=== PATIENT | male | born 1990 | race Caucasian/White ===

== ENCOUNTER 2017-02-22 13:32 | Emergency (ER) | payer SELFPAY ==
--- NOTE | 2017-02-22 14:04 | RADIOLOGY REPORT ---
Right knee HISTORY: 26-year-old male injured knee on slip and slide. Complains of pain both medially and lateral ly. Discussion: 3 radiographs of the right knee are reviewed. There are no prior studies available for co mparison. Bony structures appear normally aligned. There is no fracture or dislocation seen. No degenerative ch anges are present. Is no joint effusion. Soft tissues appear unremarkable. IMPRESSION: No acute bony injury identified. Final Electronic Signature: This report was electronically signed by Les Hughes MD on 02/22/2017 2:02 PM. patricio /
--- NOTE | 2017-02-22 14:06 | ER PHYSICIAN DOCUMENTATION ---
Physician Documentation [facility] Name:Diogenes Abarca Age:26 yrs Sex:Male :1990 Arrival Date:02/22/2017 Time:13:32 Bed6 Private MD: Dwight Colon Disposition: 02/22/17 13:53 Discharged to Home/Self Care. Impression: Internal Derangement of Knee. - Condition is Good. - Discharge Instructions: KNEE INJURY Cruciate Ligament - CRUCIATE LIGAMENT INJURY, KNEE IMMOBILIZER. - Prescriptions for Hydrocodone- Acetaminophen 5-325 mg Oral Tablet - take 1 tablet by ORAL route every 6 hours As needed; 20 tablet. - Medical Reconciliation form form. - Follow up: Polo Brandt DO; When: 1 week; Reason: Recheck today's complaints. - Problem is new. - Symptoms are unchanged. HPI: 02/22 13:44 This 26 yrs old Male presents to ER with complaints of Knee Injury - RIGHT. sc 13:44 The patient presents with an injury, pain. The complaints affect the right knee. sc Context: The problem was sustained at home, resulted from playing sports, twisting of the extremity, the patient can partially bear weight, the patient is able to ambulate, with moderate difficulty. Onset: The symptom(s)/episode began/occurred 3 day(s) ago. Associated signs and symptoms: The patient has no apparent associated signs or symptoms. Historical: - Allergies: No known drug Allergies; - Home Meds: 1. None - PMHx: None; - PSHx: None; - Ebola Screening: : Patient negative for fever greater than or equal to 101.5 degrees Fahrenheit, and additional compatible Ebola Virus Disease symptoms. Patient denies exposure to infectious person. Patient denies travel to an Ebola-affected area in the 21 days before illness onset. No symptoms or risks identified at this time. . - Immunization history: Flu Vaccine >1 year. - Social history: Smoking status: Patient states former smoker of tobacco. Patient uses alcohol only on a social basis. Patient/guardian denies using street drugs, IV drugs, marijuana. ROS: 13:45 Constitutional: Negative for fever, chills, and weight loss. sc Eyes: Negative for injury, pain, redness, and discharge. Neck: Negative for injury, pain, and swelling. Back: Negative for injury and pain. Skin: Negative for injury, rash, and discoloration. 13:45 Neuro: Negative for headache, weakness, numbness, tingling, and seizure. sc 13:45 MS/extremity: Positive for injury or acute deformity, pain, swelling. Exam: Constitutional: This is a well developed, well nourished patient who is awake, alert, and in no acute distress. Head/Face: Normocephalic, atraumatic. Eyes: Pupils equal round and reactive to light, extra-ocular motions intact. Lids and lashes normal. Conjunctiva and sclera are non-icteric and not injected. Cornea within normal limits. Periorbital areas with no swelling, redness, or edema. ENT: Nares patent. No nasal discharge, no septal abnormalities noted. Tympanic membranes are normal and external auditory canals are clear. Oropharynx with no redness, swelling, or masses, exudates, or evidence of obstruction, uvula midline. Mucous membranes moist. Neck: Trachea midline, no thyromegaly or masses palpated, and no cervical lymphadenopathy. Supple, full range of motion without nuchal rigidity, or vertebral point tenderness. No meningismus. Back: No spinal tenderness. No costovertebral tenderness. Full range of motion. 13:45 Skin: Warm, dry with normal turgor. Normal color with no rashes, no lesions, and no sc evidence of cellulitis. Chest/axilla: Normal chest wall appearance and motion. Nontender with no deformity. No lesions are appreciated. Cardiovascular: Regular rate and rhythm with a normal S1 and S2. No gallops, murmurs, or rubs. Normal PMI, no JVD. No pulse deficits. Respiratory: Lungs have equal breath sounds bilaterally, clear to auscultation and percussion. No rales, rhonchi or wheezes noted. No increased work of breathing, no retractions or nasal flaring. 13:45 Abdomen/GI: Soft, non-tender, with normal bowel sounds. No distension or tympany. No guarding or rebound. No evidence of tenderness throughout. 13:45 Musculoskeletal/extremity: ROM: intact in all extremities, Circulation is intact in all extremities. Sensation intact. Vital Signs: 13:46 BP 149 / 62; Pulse 65; Resp 18; Temp 98.2; Pulse Ox 96% on R/A; sc1 MDM: 13:42 Patient medically screened. az 13:52 Differential diagnosis: closed fracture. Data reviewed: vital signs, nurses notes, az radiologic studies, and as a result, I will discharge patient. Counseling: I had a detailed discussion with the patient and/or guardian regarding: the historical points, exam findings, and any diagnostic results supporting the discharge/admit diagnosis, radiology results, the need for outpatient follow up, for a referral to a specialist. 02/22 14:07 Order name: KNEE; [address] [place] [id number] EDMN 02/22 13:54 Order name: ORTHO: Crutches & Training; Complete Time: 13:54 az 02/22 13:54 Order name: ORTHO: Ice Pack; Complete Time: 13:54 az 02/22 13:54 Order name: ORTHO: Knee Immobilizer; Complete Time: 13:54 az Dispensed Medications: No medications were administered Signatures: Sara Grier RN RN az1 Dwight Dow MD MD az
--- NOTE | 2017-02-22 14:06 | ER NURSING DOCUMENTATION ---
Nurse's Notes [facility] Name:Diogenes Abarca Age:26 yrs Sex:Male :1990 Arrival Date:02/22/2017 Time:13:32 Bed6 Private MD: Diagnosis:Internal Derangement of Knee Presentation: 02/22 13:39 Acuity: STEPHEN 4 sc1 13:43 Presenting complaint: Patient states: twisted right knee 2 days ago while playing on a dc1 slip and slide. Transition of care: Home. Notified ED Physician of patient's arrival and CC Dr. Dow notified. 13:43 Method Of Arrival: Private Vehicle dc1 Triage Assessment: 13:45 General: Appears uncomfortable, well developed, well nourished, well groomed, Behavior sc1 is cooperative, pleasant. Pain: Complains of pain in lateral aspect of right knee and medial aspect of right knee. Musculoskeletal:. Historical: - Allergies: No known drug Allergies; - Home Meds: 1. None - PMHx: None; - PSHx: None; - Ebola Screening: : Patient negative for fever greater than or equal to 101.5 degrees Fahrenheit, and additional compatible Ebola Virus Disease symptoms. Patient denies exposure to infectious person. Patient denies travel to an Ebola-affected area in the 21 days before illness onset. No symptoms or risks identified at this time. . - Immunization history: Flu Vaccine >1 year. - Social history: Smoking status: Patient states former smoker of tobacco. Patient uses alcohol only on a social basis. Patient/guardian denies using street drugs, IV drugs, marijuana. Screenin:47 Infectious Disease Risk None. Abuse screen: Denies threats or abuse. Nutritional dc1 screening: No deficits noted. Vital Signs: 13:46 BP 149 / 62; Pulse 65; Resp 18; Temp 98.2; Pulse Ox 96% on R/A; dc1 ED Course: 13:37 Patient arrived in ED. ama 13:39 Sara Grier RN is Primary Nurse. dc1 13:39 Triage completed. sc1 13:42 Dwight Dow MD is Attending Physician. dc 13:47 Notified ED Physician of patient's arrival and chief complaint. Dr. Dow notified. Arm sc1 band placed on Bed in low position Call Light in Reach HOB Elevated. X-ray done. Affected limb iced. 13:53 Polo Brandt DO is Referral Physician. dc 13:54 Crutch training done. Knee immobilizer applied on right knee. dc1 Administered Medications: No medications were administered Outcome: 13:53 Discharge ordered by . dc 14:05 Discharged to home ambulatory, with crutches. [facility] [place] 14:05 Condition: stable 14:05 Discharge instructions given to patient, Instructed on discharge instructions, follow up and referral plans. medication usage, Demonstrated understanding of instructions, medications, Prescriptions given X 1. 14:06 Patient left the ED. [facility] [place] 02/23 09:13 Discharge F/U Call: Spoke with: patient. other: Name: pt states he is still sore. st reviewed Ice elevation, and pain med regime. Pt was also told to make his fallow up appointment. Signatures: Elisa Urban, Sara Osullivan RN, RN RN dc1 Dwight Dow MD MD sc Abbott, Diogenes Bailey, Reg Reg ama
== END 2017-02-22 14:06 | disposition home or self-care (01) ==
LOC: ER 13:32
DX: M23.91 Unspecified internal derangement of right knee (principal)
CPT/HCPCS: 99283